=== PATIENT | female | born 1975 | race Caucasian/White ===

== ENCOUNTER 2016-12-10 15:37 | Emergency (ER) | payer OTHER ==
[2016-12-10 16:02] VITALS: BP 145/63
--- NOTE | 2016-12-10 16:47 | UC ---
Respiratory Complaint HPI - HPI Summary HPI Summary: 41 yo female with a 4 day hx of cough/nasal congestion and sore throat no fever no cp or sob - History of Current Complaint Chief Complaint: UCGeneralIllness Stated Complaint: SORE THROAT Time Seen by Provider: 12/10/16 16:14 Hx Last Menstrual Period: 10/19/16 Onset/Duration: Gradual Onset, Lasting Days Timing: Constant Severity Initially: Mild Severity Currently: Mild Pain Intensity: 3 Pain Scale Used: 0-10 Numeric Character: Cough: Nonproductive Associated Signs And Symptoms: Positive: Nasal Congestion - Allergies/Home Medications Allergies/Adverse Reactions: Allergies Allergy/AdvReac Type Severity Reaction Status Date / Time No Known Allergies Allergy Verified 12/10/16 15:59 Home Medications: Home Medications Escitalopram Oxalate [Lexapro 20 mg] 20 mg PO DAILY 12/10/16 [History Confirmed 12/10/16] Metoprolol Tartrate TAB* [Lopressor TAB*] 50 mg PO DAILY 12/10/16 [History Confirmed 12/10/16] Venlafaxine EXT RELEASE CAP* [Effexor Xr CAP*] 37.5 mg PO DAILY 12/10/16 [ History Confirmed 12/10/16] PMH/Surg Hx/FS Hx/Imm Hx Previously Healthy: Yes Cardiovascular History: Hypertension Respiratory History: Bronchitis - Surgical History Surgical History: Yes Surgery Procedure, Year, and Place: UTERINE ABLATION. ESSURE - Family History Known Family History: Positive: Hypertension - Social History Alcohol Use: None Substance Use Type: None Smoking Status (MU): Former Smoker Type: Cigarettes Length of Time of Smoking/Using Tobacco: ON AND OFF FOR 20 YEARS Review of Systems Constitutional: Negative Skin: Negative Eyes: Negative ENT: Sore Throat, Nasal Discharge Respiratory: Cough Cardiovascular: Negative Gastrointestinal: Negative Genitourinary: Negative Motor: Negative Neurovascular: Negative Musculoskeletal: Negative Neurological: Negative Psychological: Negative All Other Systems Reviewed And Are Negative: Yes Physical Exam Triage Information Reviewed: Yes Appearance: Well-Appearing, No Pain Distress, Well-Nourished Vital Signs: Initial Vital Signs Temp 99.1 F 12/10/16 15:57 Pulse 81 12/10/16 15:57 Resp 16 12/10/16 15:57 BP 145/63 12/10/16 15:57 Pulse Ox 97 12/10/16 15:57 Vital Signs Reviewed: Yes Eyes: Positive: Conjunctiva Clear ENT: Positive: Hearing grossly normal, Pharyngeal erythema, Nasal congestion, TMs normal. Negative: Tonsillar swelling, Tonsillar exudate, Trismus, Muffled/ hoarse voice Neck: Positive: Supple, Nontender Respiratory: Positive: Lungs clear, Normal breath sounds, No respiratory distress Cardiovascular: Positive: RRR Musculoskeletal: Positive: ROM Intact, No Edema Neurological: Positive: Alert Psychological Exam: Normal Skin Exam: Normal UC Diagnostic Evaluation - Laboratory O2 Sat by Pulse Oximetry: 97 - normal/not hypoxic Respiratory Course/Dx - Differential Dx/Diagnosis Provider Diagnoses: viral URI Discharge - Discharge Plan Condition: Stable Disposition: HOME Patient Education Materials: Upper Respiratory Infection (ED) Referrals: Tatiana Valdovinos MD [Primary Care Provider] - 4 Days (if not better) Additional Instructions: tylenol or advil if needed mucinex or robitussin DM
== END 2016-12-10 16:57 | disposition home or self-care (01) ==
LOC: UCCORT 15:37
DX: J06.9 Acute upper respiratory infection, unspecified (principal); I10 Essential (primary) hypertension; Z87.891 Personal history of nicotine dependence
CPT/HCPCS: 87651; 99211; G0463

== ENCOUNTER 2018-06-26 14:54 | Emergency (ER) | payer OTHER ==
[2018-06-26 15:16] VITALS: BP 143/86
--- NOTE | 2018-06-26 15:44 | UC ---
Lower Extremity/Ankle HPI - HPI Summary HPI Summary: 43-year-old woman comes in with a chief complaint of left ankle pain. Started several days ago. It's on the anterior aspect of her left ankle. Pain is worse with dorsiflexion of the ankle. No known trauma. Couple weeks ago she had pain on the medial aspect of that same ankle. No fevers or chills. Walking makes the pain worse rest decreases the pain. - History of Current Complaint Chief Complaint: UCLowerExtremity Stated Complaint: LEFT ANKLE PAIN Time Seen by Provider: 06/26/18 15:35 Hx Last Menstrual Period: 06/20/18 Pain Intensity: 0 - Allergies/Home Medications Allergies/Adverse Reactions: Allergies Allergy/AdvReac Type Severity Reaction Status Date / Time No Known Allergies Allergy Verified 12/10/16 15:59 Home Medications: Home Medications Acetaminophen [Mapap] 1,000 mg PO ONCE 06/26/18 [History Confirmed 06/26/18] Atorvastatin* [Lipitor 40 MG*] 10 mg PO DAILY 06/26/18 [History Confirmed ] Glimepiride 1 each PO DAILY 06/26/18 [History Confirmed 06/26/18] Losartan Potassium [Cozaar] 25 mg PO DAILY 06/26/18 [History Confirmed 06/26/18] Metformin HCl [Metformin ER Osmotic] 500 mg PO DAILY 06/26/18 [History Confirmed 06/26/18] PMH/Surg Hx/FS Hx/Imm Hx Previously Healthy: Yes Endocrine History: Diabetes, Dyslipidemia Cardiovascular History: Hypertension - Surgical History Surgical History: Yes Surgery Procedure, Year, and Place: UTERINE ABLATION. ESSURE - Family History Known Family History: Positive: Hypertension - Social History Alcohol Use: Occasionally Substance Use Type: None Smoking Status (MU): Former Smoker Type: Cigarettes Length of Time of Smoking/Using Tobacco: ON AND OFF FOR 20 YEARS Review of Systems All Other Systems Reviewed And Are Negative: Yes Constitutional: Positive: Negative Skin: Positive: Negative Eyes: Positive: Negative ENT: Positive: Negative Respiratory: Positive: Negative Cardiovascular: Positive: Negative Gastrointestinal: Positive: Negative Motor: Positive: Negative Neurovascular: Positive: Negative Musculoskeletal: Positive: Other: - SEE HPI Neurological: Positive: Negative Psychological: Positive: Negative Is Patient Immunocompromised?: No Physical Exam Triage Information Reviewed: Yes Appearance: Well-Appearing, No Pain Distress, Well-Nourished Vital Signs: Initial Vital Signs Temp 97.5 F 06/26/18 15:10 Pulse 78 06/26/18 15:10 Resp 16 06/26/18 15:10 BP 143/86 06/26/18 15:10 Pulse Ox 98 06/26/18 15:10 Vital Signs Reviewed: Yes Eye Exam: Normal Eyes: Positive: Conjunctiva Clear Neck exam: Normal Neck: Positive: Supple Respiratory: Positive: No respiratory distress Musculoskeletal: Positive: Other: - Left ankle is tender to palpation on the anterior aspect. There is no swelling. Achilles tendon is nontender and intact. The medial and lateral aspects of the left ankle are nontender nonswollen. The rest of the foot is nonswollen. No rash. No color. Neurological Exam: Normal Neurological: Positive: Alert, Muscle Tone Normal Psychological Exam: Normal Psychological: Positive: Age Appropriate Behavior Skin Exam: Normal Lower Extremity Course/Dx - Course Course Of Treatment: Order Information: ANKLE LEFT 3+VWS. Accession Number: [id number]. CPT: 29511. Indication: Left ankle injury. 3 views of left ankle demonstrates marked soft tissue swelling especially laterally. No. definitive fracture is identified. Inferior calcaneal spur is noted. IMPRESSION : Soft tissue swelling without definite evidence of fracture. . <Electronically signed by Liz Simpson MD in OV> 06/26/18 8235. With the pain being primarily in the dorsum of the ankle we'll treat with a cam boot to decrease dorsiflexion and plantarflexion. Patient can use ibuprofen and ice elevated and then if not completely improved follow-up with orthopedics. - Differential Dx/Diagnosis Provider Diagnosis: Left ankle sprain, Tendonitis of ankle, left Discharge - Sign-Out/Discharge Documenting (check all that apply): Patient Departure All imaging exams completed and their final reports reviewed: Yes - Discharge Plan Condition: Stable Disposition: HOME Patient Education Materials: Ankle Sprain (ED), Tendinitis (ED) Referrals: Maykel Rader MD [Primary Care Provider] - Wally Bojorquez MD [Medical Doctor] - Additional Instructions: FOLLOW UP WITH ORTHOPEDICS, DR BOJORQUEZ, IF NOT COMPLETELY IMPROVED. GET RECHECKED FOR ANY WORSENING OF YOUR CONDITION OR QUESTIONS OR CONCERNS. - Billing Disposition and Condition Condition: STABLE Disposition: Home
== END 2018-06-26 16:19 | disposition home or self-care (01) ==
LOC: UCCORT 14:54
DX: S93.402A Sprain of unspecified ligament of left ankle, initial encounter (principal); M77.9 Enthesopathy, unspecified; E11.9 Type 2 diabetes mellitus without complications; E78.5 Hyperlipidemia, unspecified; I10 Essential (primary) hypertension; Z79.84 Long term (current) use of oral hypoglycemic drugs; Z79.899 Other long term (current) drug therapy; Z87.891 Personal history of nicotine dependence; X58.XXXA Exposure to other specified factors, initial encounter; Y92.9 Unspecified place or not applicable
CPT/HCPCS: 99212; G0463

== ENCOUNTER 2018-08-18 12:25 | Emergency (ER) | payer OTHER ==
[2018-08-18 13:23] VITALS: BP 134/70
[2018-08-18] MEDS ORDERED: Ondansetron ODT TAB* 4 MG PO ONE (13:33)
--- NOTE | 2018-08-18 13:40 | UC ---
FLU HPI - HPI Summary HPI Summary: Pt c/o sudden onset of fever chills, body aches X 1 day. - History of Current Complaint Chief Complaint: UCGeneralIllness Stated Complaint: FLU SYMPTOMS Time Seen by Provider: 08/18/18 13:14 Hx Obtained From: Patient Hx Last Menstrual Period: 08/14/18 ?: No Onset/Duration: Sudden Onset, Lasting Days, Still Present Severity Currently: Moderate Severity Initially: Moderate Pain Intensity: 4 Associated Signs & Symptoms: Positive: Fever, Myalgia Related Hx: Possible Flu/Infectious Exposure - Risk Factors Influenza Risk Factors: Negative - Allergy/Home Medications Allergies/Adverse Reactions: Allergies Allergy/AdvReac Type Severity Reaction Status Date / Time No Known Allergies Allergy Verified 08/18/18 13:24 PMH/Surg Hx/FS Hx/Imm Hx Previously Healthy: Yes - Surgical History Surgical History: Yes Surgery Procedure, Year, and Place: UTERINE ABLATION. ESSURE - Family History Known Family History: Positive: Hypertension - Social History Occupation: Employed Full-time Lives: With Family Alcohol Use: Occasionally Substance Use Type: None Smoking Status (MU): Former Smoker Type: Cigarettes Length of Time of Smoking/Using Tobacco: ON AND OFF FOR 20 YEARS Have You Smoked in the Last Year: Yes When Did the Patient Quit Smoking/Using Tobacco: 2018 - Immunization History Vaccination Up to Date: Yes Review of Systems All Other Systems Reviewed And Are Negative: Yes Constitutional: Positive: Fever, Chills, Fatigue Skin: Positive: Negative Eyes: Positive: Negative ENT: Positive: Negative Respiratory: Positive: Negative Cardiovascular: Positive: Negative Gastrointestinal: Positive: Nausea Genitourinary: Positive: Negative Motor: Positive: Negative Neurovascular: Positive: Negative Musculoskeletal: Positive: Myalgia Neurological: Positive: Negative Psychological: Positive: Negative Is Patient Immunocompromised?: No Physical Exam Triage Information Reviewed: Yes Appearance: Ill-Appearing Vital Signs: Initial Vital Signs Temp 97.5 F 08/18/18 13:17 Pulse 81 08/18/18 13:17 Resp 16 08/18/18 13:17 BP 134/70 08/18/18 13:17 Pulse Ox 96 08/18/18 13:17 Vital Signs Reviewed: Yes Eye Exam: Normal ENT Exam: Normal Dental Exam: Normal Neck exam: Normal Respiratory Exam: Normal Cardiovascular Exam: Normal Musculoskeletal Exam: Normal Neurological Exam: Normal Psychological Exam: Normal Skin Exam: Normal Flu Course/Dx - Differential Dx/Diagnosis Differential Diagnosis/HQI/PQRI: Influenza, Upper Respiratory Infection Provider Diagnosis: Viral syndrome Discharge - Sign-Out/Discharge Documenting (check all that apply): Patient Departure All imaging exams completed and their final reports reviewed: No Studies - Discharge Plan Condition: Stable Disposition: HOME Patient Education Materials: Viral Syndrome (ED) Forms: *Work Release Referrals: Maykel Rader MD [Primary Care Provider] - If Needed - Billing Disposition and Condition Condition: STABLE Disposition: Home
[2018-08-18 13:45] LABS: Influenza A Molecular NEGATIVE (Negative); Influenza B Molecular NEGATIVE (Negative)
== END 2018-08-18 13:58 | disposition home or self-care (01) ==
LOC: UCCORT 12:25
DX: B34.9 Viral infection, unspecified (principal); M79.10 Myalgia, unspecified site; R11.0 Nausea; Z87.891 Personal history of nicotine dependence
CPT/HCPCS: 99212; A9270-GY; G0463

== ENCOUNTER 2019-02-22 16:51 | Emergency (ER) | payer OTHER ==
--- OUTSIDE RECORDS SUMMARY | 2019-02-22 16:57 | XMS REPORT | Continuity of Care Document ---
:1975 External Reference #:[id number] Author Name Azeb Caruso PA Address [phone] [place] [address] Care Team Providers Name Role Phone Azeb Caruso PA - Medical Care Team Information Arm Maker [phone] Problems Active Problems Provider Date Type 2 diabetes mellitus Azeb Caruso PA Onset: 02/24/2018 Single major depressive episode Sadie Vegas FNP Onset: 06/04/2012 Moderate recurrent major depression Tatiana Valdovinos M.D. Onset: 10/28/2015 Essential hypertension Tatiana Valdovinos M.D. Onset: 10/28/2015 Palpitations Cammie Avila FNP-C Onset: 02/10/2016 Social History Type Date Description Comments Sex Unknown Tobacco Use Start: Unknown Patient is a current cigarette smoker, smokes every day ETOH Use Denies alcohol use Tobacco Use Start: Unknown End: Patient is a former smoker Quit in April 2018 Unknown Smoking Status Reviewed: 02/17/19 Patient is a former smoker Quit in April 2018 Allergies, Adverse Reactions, Alerts Description No Known Drug Allergies Medications Active Medications SIG Qnty Indications Ordering Date Provider Loratadine 1 by mouth every 30caps Annabella Underwood, 02/17/2019 10mg Capsules day MD Mupirocin apply to 22gm R21 Annabella Underwood, 02/17/2019 2% Ointment affected area of MD the face twice daily for 8-9 days Chlorthalidone 1 by mouth every 30tabs I10 Annabella Underwood, 02/17/2019 25mg day MD Tablets Pioglitazone HCL 1 tab by mouth 30tabs Annabella Underwood, 11/05/2018 15mg every day MD Tablets Losartan Potassium 1 by mouth every 90tabs I10 Annabella Underwood, 04/30/2018 25mg day MD Tablets Glimepiride 1 by mouth every 30tabs Annabella Underwood, 11/23/2017 4mg Tablets day MD Pravastatin Sodium 1 by mouth every 90tabs E78.5 Annabella Underwood, 2017 20mg day MD Tablets Blood Glucose check blood 1units Tatiana Valdovinos, 08/15/2017 Monitoring System sugars fasting M.D. in in the W/Device Kit morning dx. e11.9 Blood Glucose Test test sugars in 100units Tatiana Valdovinos, 08/15/2017 in the morning M.D. Strips e11.9 Lancets Ultra Thin test sugars as 100units Tatiana Valdovinos, 08/15/2017 [facility] directed dxe11.9 M.D. Venlafaxine HCL ER 1 by mouth every 90caps Annabella Underwood, 09/05/2016 37.5mg day MD Caps ER 24HR Metoprolol Succinate 1 tab by mouth 90tabs Annabella Underwood, ER every day MD 50mg Tablets ER 24HR History Medications Bactrim DS 1 tab by mouth 14tabs Annabella Underwood, 10/17/2018 - 800-160mg twice a day for MD 10/24/2018 Tablets 7 days Pioglitazone HCL 1 tab by mouth 30tabs Annabella Underwood, 10/17/2018 - 15mg every day MD 11/05/2018 Tablets Januvia 1 by mouth 30tabs E11.9 Annabella Underwood, 10/04/2018 - 100mg Tablets every day MD 11/05/2018 Diflucan 1 tab by mouth 2tabs B37.0 Annabella Underwood, 10/04/2018 - 150mg Tablets today. september MD 10/11/2018 repeat in 1 week if needed Immunizations CPT Code Status Date Vaccine Lot # [id number] Given 09/19/2017 Tdap injection [id number] Refused 03/03/2016 Influenza Vaccine (Fluzone) Age 3 And Older Vital Signs Date Vital Result Comment 02/17/2019 9:22am BP Systolic 146 mmHg BP Diastolic 100 mmHg Body Temperature 97.3 F Heart Rate 92 /min Respiratory Rate 16 /min Height 68.75 inches 5'8.75" Weight 229.25 lb BMI (Body Mass Index) 34.1 kg/m2 BSA (Body Surface Area) 2.18 m2 [place] body weight in kilograms 65 kg O2 % BldC Oximetry 97 % 11/05/2018 9:02am BP Systolic 120 mmHg BP Diastolic 78 mmHg Body Temperature 97.6 F Heart Rate 79 /min Weight 231.00 lb O2 % BldC Oximetry 98 % Results Test Date Facility Test Result H/L Range Note Basic Metabolic 02/01/[address] Glucose 220 mg/dL High 74- 106 1 Panel [address] [place] [address] [phone] BUN 14 mg/dL Normal 7-18 Creatinine 0.8 mg/dL Normal 0.6-1.3 Glom Filtration Rate, Estimate >60 mL/min >60 If >60 mL/min >60 2 BUN/Creat 17.5 ratio Sodium 136 mmol/L Normal 136-145 Potassium 4.0 mmol/L Normal 3.5-5.1 Chloride 104 mmol/L Normal 98-107 Carbon Dioxide 26 mmol/L Normal 21-32 Anion Gap 6 mEq/L Low 8-16 Calcium 8.8 mg/dL Normal 8.5-10.1 Glycohemoglobin 02/01/[address] Glycohemoglobin 7.8 % High 4.2-6.3 3 A1c [address] [facility] (A1c) [place] [address] [phone] eAG 177 mg/dL Urine Dipstick 11/05/2018 [facility] Inhouse Ua Color Yellow Yellow Ua Clarity clear Clear Ua Leuko negative Negative Ua Nitrite negative Negative Ua Urobilinogen 0.2 0.2 - 1.0 E.U./dL Ua Protein 0.15g/L High Negative Ua PH 5.5 Low 6.5-7.5 Ua Blood negative Negative Ua Specific [place] 1.030 1.010-1.030 Ua Ketones negative Negative Ua Bilirubin negative Negative Ua Glucose negative Negative Comprehensive Metabolic 10/08/[address] Glucose 202 mg/dL High 74-106 4 Panel [address] [place] [address] [phone] BUN 11 mg/dL Normal 7-18 Creatinine 0.7 mg/dL Normal 0.6-1.3 Glom Filtration Rate, Estimate >60 mL/min >60 If >60 mL/min >60 5 BUN/Creat 15.7 ratio Sodium 137 mmol/L Normal 136-145 Potassium 3.9 mmol/L Normal 3.5-5.1 Chloride 103 mmol/L Normal 98-107 Carbon Dioxide 25 mmol/L Normal 21-32 Anion Gap 9 mEq/L Normal 8-16 Calcium 8.6 mg/dL Normal 8.5-10.1 Total Protein 8.0 g/dL Normal 6.4-8.2 Albumin 3.6 g/dL Normal 3.4-5.0 Globulin 4.4 g/dL High 1.9-4.3 Alb/Glob 0.8 ratio Bilirubin,Total 0.5 mg/dL Normal 0.2-1.0 Sgot/Ast 43 U/L High 15-37 SGPT/Alt 44 U/L Normal 12-78 Alkaline Phosphatase 111 U/L Normal 45-117 Glycohemoglobin 10/08/[address] Glycohemoglobin 7.4 % High 4.2-6.3 6 A1c [address] [facility] (A1c) [place], [place] [id number] [phone] eAG 166 mg/dL LDL Cholesterol Profile 10/08/[address] Cholesterol 142 mg/dL <200 7 [address] [place], [place] [id number] [phone] Triglycerides 128 mg/dL <150 8 HDL Cholesterol 20 mg/dL Low >40 9 LDL-Cholesterol 96 mg/dL < 100 10 Routine Culture W/ 10/04/[address] Gram Stain NO ORGANISMS SEE 11 Gram Stain [address] [facility] <SEE NOTE> [place], [place] [id number] [phone] Aerobic Culture METHICILLIN RESI <SEE NOTE> Abnormal 12 Quantity MANY Aerobic Culture MIXED SKIN VASYL 13 Quantity MODERATE Methicillin Resistant 10/04/[address] Oxacillin >=4 Resistant S.Aureus [address] [place], [place] [id number] [phone] Tetracycline <=1 Susceptible Trimethoprim/Sulfamethoxazole <=10 Susceptible Erythromycin <=0.25 Susceptible Clindamycin <=0.25 Susceptible Moxifloxacin <=0.25 Susceptible Levofloxacin 0.25 Susceptible Vancomycin <=0.5 Susceptible Microalbumin,Random 10/04/[address] Microalbumin,Urine 6.1 < 20.0 [address] mg/[place] [address] [phone] Urine Dipstick 10/04/2018 [facility] Inhouse Ua Color yellow Yellow Ua Clarity clear Clear Ua Leuko negative Negative Ua Nitrite negative Negative Ua Urobilinogen 0.2 0.2 - 1.0 E.U./dL Ua Protein negative Negative Ua PH 6.0 Low 6.5-7.5 Ua Blood negative Negative Ua Specific [place] 1.020 1.010-1.030 Ua Ketones negative Negative Ua Bilirubin negative Negative Ua Glucose 60 mmol/L High Negative Rapid Influenza 08/18/2018 [facility] Influenza A NEGATIVE Negative 15 A & B Molecular [phone] Molecular Influenza B Molecular NEGATIVE Negative 1 E11.9 I10 2 Note: Persistent reduction for 3 months or more in an eGFR <60 mL/min/1.73 m2 defines CKD. Patients with eGFR values >/=60 mL/min/1.73 m2 may also have CKD if evidence of persistent proteinuria is present. The original MDRD equation for estimated GFR is not valid for patients less than 18 years of age. Additional information may be found at www.kdoqi.org. 3 Elevated levels of HbA1c suggest the need for more aggressive treatment of glycemia. The [place] [employer] recommends that a primary goal of therapy should be a HbA1c of <7% and that physicians should re-evaluate the treatment regimen in patients with HbA1c values consistently >8%. 4 E11.9 E78.5 5 Note: Persistent reduction for 3 months or more in an eGFR <60 mL/min/1.73 m2 defines CKD. Patients with eGFR values >/=60 mL/min/1.73 m2 may also have CKD if evidence of persistent proteinuria is present. The original MDRD equation for estimated GFR is not valid for patients less than 18 years of age. Additional information may be found at www.kdoqi.org. 6 Elevated levels of HbA1c suggest the need for more aggressive treatment of glycemia. The [place] [employer] recommends that a primary goal of therapy should be a HbA1c of <7% and that physicians should re-evaluate the treatment regimen in patients with HbA1c values consistently >8%. 7 Reference Guidelines*: Desirable: ........... < 200 mg/dL Borderline High: ..... 200-239 mg/dL High: ................ >= 240 mg/dL * The National Cholesterol Education Program (NCEP) 8 Reference Guidelines*: Normal: ............. < 150 mg/dL Borderline High: .... 150-199 mg/dL High: ............... 200-499 mg/dL Very High: .......... > 500 mg/dL * Source: National Cholesterol Education Program (NCEP) 9 Reference Guidelines*: Low HDL: ..... < 40 mg/dL Normal: ..... 40-60 mg/dL Desirable: ... > 60 mg/dL *The National Cholesterol Education Program(NCEP) 10 Reference Guidelines*: Optimal:........... <100 mg/dL Near Optimal....... 100-129 mg/dL Borderline High.... 130-159 mg/dL High............... 160-189 mg/dL Very High.......... >=190 mg/dL * Source: National Cholesterol Education Program (NCEP) 11 NO ORGANISMS SEEN 12 METHICILLIN RESISTANT S.AUREUS 13 MIXED SKIN VASYL 14 R21 15 [employer] Worker: [id number] Procedures Date Code Description Status 06/17/2018 128428283 Diabetic Foot Exam Completed 08/24/2017 [id number] Mammogram Completed 08/13/2017 [id number] Mammogram Completed Medical Devices Description No Information Available Encounters Type Date Location Provider Dx Diagnosis Office Visit 11/05/2018 Family Medicine Azeb Caruso, E11.9 Type 2 diabetes 9:[address] [place] mellitus without complications I10 Essential (primary) hypertension Office Visit 10/04/2018 2:15p Family Medicine Azeb Caruso, E11.9 Type [address] [place] mellitus without complications I10 Essential (primary) hypertension B37.0 Candidal stomatitis H00.12 [place] right lower eyelid E78.5 Hyperlipidemia, unspecified R21 Rash and other nonspecific skin eruption Assessments Date Code Description Provider 02/17/2019 Z00.01 Encounter for general adult medical examination Azeb Caruso PA with abnormal findings 02/17/2019 I10 Essential (primary) hypertension Azeb Caruso PA 02/17/2019 E11.9 Type 2 diabetes mellitus without complications Azeb Caruso PA 02/17/2019 R21 Rash and other nonspecific skin eruption Azeb Caruso PA 02/17/2019 E78.5 Hyperlipidemia, unspecified Azeb Caruso PA 02/17/2019 F33.1 Major depressive disorder, recurrent, moderate Azeb Caruso PA 11/05/2018 E11.9 Type 2 diabetes mellitus without complications Azeb Caruso PA 11/05/2018 I10 Essential (primary) hypertension Azeb Caruso PA 10/04/2018 E11.9 Type 2 diabetes mellitus without complications Azeb Caruso PA 10/04/2018 I10 Essential (primary) hypertension Azeb Caruso PA 10/04/2018 B37.0 Candidal stomatitis Azeb Caruso PA 10/04/2018 H00.12 [place]azion right lower eyelid Azeb Caruso PA 10/04/2018 E78.5 Hyperlipidemia, unspecified Azeb Caruso PA 10/04/2018 R21 Rash and other nonspecific skin eruption Azeb Caruso PA Plan of Treatment 02/17/2019 - Azeb Caruso PAZ00.01 Encounter for general adult medical examination with abnormal findingsComments:Discussed healthy habits. Plenty of water, fresh fruits and vegetables and whole grains in the diet.Limit sugary foods and drinks. Limit fried foods, fast foods and processed foods. Try to exercise deisi regular basis. 30-45 minutes 4-5 days a week is a reasonable goal.Follow up:DM follow up 3 months. Have labs done 1 week prior. Lab slip printed.I10 Essential (primary) hypertensionNew Medication:Chlorthalidone 25 mg - 1 by mouth every dayComments:BP is not at goal. Will add HCTZ to regimen. Monitor BP and please call if it does not return to below 130.90. Otherwise, we will follow up in 3 months.E11.9 Type 2 diabetes mellitus without complicationsNew Labs:Comprehensive Metabolic Panel, Scheduled: Glycohemoglobin A1c, Scheduled: 05/12/19Comments:Resume meds as directed. Try to start cutting sown on the soda. Labs in 3 months w Office visit to follow.R21 Rash and other nonspecific skin eruptionNew Medication:Mupirocin 2 % - apply to affected area of the face twice daily for 8-9 daysE78.5 Hyperlipidemia, unspecifiedNew Labs:LDL Cholesterol Profile, Scheduled: F33.1 Major depressive disorder, recurrent, moderate Functional Status Functional Condition Comment Date Status Independent with all ADL's Active Mental Status Description No Information Available Referrals Description No Information Available
[2019-02-22] MEDS ORDERED: NS 0.9% 1000 ML** 2,000 ML IV ONE (17:33)
[2019-02-22 19:40] VITALS: BP 134/74
--- NOTE | 2019-02-22 20:10 | ED ---
HPI Diabetic - HPI Summary HPI Summary: 44 yo WF h/o DM2 p/w hyperglycemia in 330's per pt x 2 days associated with blurry vision, fatigue, nausea, heart palpitations and mild SOB. VS stable in UC and denies acute chest pressure with SOB, HR in the 80's. Deneis recent illnesses f/c/URI sx/urinary sx - History Of Current Complaint Chief Complaint: UCGeneralIllness Time Seen by Provider: 02/22/19 17:18 Hx Obtained From: Patient Hx Last Menstrual Period: 01/25/19 Onset/Duration: Lasting Days Timing: Constant Severity Initially: Moderate Severity Currently: Moderate Character: Alert Associated Signs & Symptoms: Negative Related History: DM II - Risk Factors Cardiac Risk Factors: Hypertension, Diabetes CVA Risk Factor: Hypertension, Diabetes Serious Bact. Infect. Risk Factors (Meningitis/Sepsis/UTI): Negative - Allergies/Home Medications Allergies/Adverse Reactions: Allergies Allergy/AdvReac Type Severity Reaction Status Date / Time No Known Allergies Allergy Verified 02/22/19 17:11 Home Medications: Home Medications Chlorthalidone TAB* [Hygroton TAB*] 25 mg PO DAILY 02/22/19 [History Confirmed 02/22/19] Pioglitazone TAB* [Actos TAB*] 15 mg PO DAILY 02/22/19 [History Confirmed ] PMH/Surg Hx/FS Hx/Imm Hx Previously Healthy: Yes Endocrine/Hematology History: Reports: Hx Diabetes - TYPE 2 Cardiovascular History: Reports: Hx Hypertension - Surgical History Surgery Procedure, Year, and Place: UTERINE ABLATION. 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 Negative: Chest Pain Positive: Shortness Of Breath Gastrointestinal: Negative Genitourinary: Negative Musculoskeletal: Negative Skin: Negative Neurological: Negative All Other Systems Reviewed And Are Negative: Yes Physical Exam - Summary Physical Exam Summary: Appearance: Positive: No Pain Distress Skin: Positive: Warm Head/Face: Positive: Normal Head/Face Inspection Eyes: Positive: Normal ENT: Positive: Normal ENT inspection Neck: Positive: Supple Respiratory/Lung Sounds: Positive: Clear to Auscultation. Negative: Rales, Rhonchi, Wheezes Cardiovascular: Positive: Normal, RRR, S1, S2 Abdomen : soft, NT/ND Musculoskeletal: Positive: Normal, Strength/ROM Intact Neurological: Positive: CN 2-12 grossly intact Vital Signs On Initial Exam: Initial Vitals Temp Pulse Resp BP Pulse Ox 36.4 C 100 16 113/55 98 02/22/19 17:05 02/22/19 17:05 02/22/19 17:05 02/22/19 17:05 02/22/19 17:05 Diagnostics - Vital Signs Vital Signs Temp Pulse Resp BP Pulse Ox 02/22/19 19:30 36.8 C 90 16 134/74 100 02/22/19 17:05 36.4 C 100 16 113/55 98 - Laboratory Lab Statement: Any lab studies that have been ordered have been reviewed, and results considered in the medical decision making process. Diabetic Course/Dx - Course Course Of Treatment: After 1L of NS pt still did not feel better, FS came down minimally from 339 to 309 after 1 L of NS, and with constellation of sx of nausea, SOB, palpitations, EKG was done that showed NSR at 85 bpm with madhu MILD flattening of T waves in inferior leads, and it was decided that pt shoulder be transferred to ED for more comrehensive workup and r/o ACS as well. Pt remained stable throughout UC stay and during transfer - Diagnoses Provider Diagnoses: Hyperglycemia due to type 2 diabetes mellitus, Palpitations, Fatigue Discharge ED - Sign-Out/Discharge Documenting (check all that apply): Patient Departure All imaging exams completed and their final reports reviewed: No Studies - Discharge Plan Condition: Stable Disposition: TRANS HIGHER LVL OF CARE FAC Referrals: Maykel Rader MD [Primary Care Provider] - - Billing Disposition and Condition Condition: STABLE Disposition: Trans Higher Lvl of Care Fac
== END 2019-02-22 19:33 | disposition short-term general hospital (02) ==
LOC: UCCORT 16:51
DX: E11.65 Type 2 diabetes mellitus with hyperglycemia (principal); I10 Essential (primary) hypertension; R53.83 Other fatigue; R00.2 Palpitations; Z87.891 Personal history of nicotine dependence
CPT/HCPCS: 93005; 96360; 99213; G0463